=== PATIENT | female | born 1995 | race Caucasian/White ===

== ENCOUNTER 2016-07-09 21:04 | Emergency (ER) | payer MEDICAID ==
[~2016-07-09] VITALS: Ht 154.9 cm; Wt 57.5 kg
[2016-07-09 22:49] LABS: PATH.CAST-FLAG NOT PRESENT; SPERM-FLAG NOT PRESENT; SRC-FLAG NOT PRESENT; XTAL-FLAG NOT PRESENT; YLC-FLAG NOT PRESENT
[2016-07-09 22:51] LABS: HCG UR OBC PASS
[2016-07-09] MEDS ORDERED: KETOROLAC 30 MG/1 ML ONE (22:51)
[2016-07-09] MEDS ORDERED: ONDANSETRON 2MG/ML, 2ML ONE (22:52)
[2016-07-09] MEDS ORDERED: SODIUM CHLORIDE 0.9% 1,000ML IVBOLUS ONE (23:00)
[2016-07-09] MEDS ORDERED: KETOROLAC 30 MG/1 ML IVPush ONE (23:00)
[2016-07-09] MEDS ORDERED: ONDANSETRON 2MG/ML, 2ML IVPush ONE (23:00)
[2016-07-09 23:21] LABS: ASPARTATE AMINO TRANSFERASE 16 U/L (15-37); BLOOD UREA NITROGEN 5 mg/dL (7-18)
[2016-07-09] MEDS ORDERED: CEFTRIAXONE PMX 1GM/50ML 50 ML ONE (23:53)
[2016-07-10] MEDS ORDERED: CEFTRIAXONE PMX 1GM/50ML 50 ML IV ONE
[2016-07-10 00:06] VITALS: BP 108/62
== END 2016-07-10 00:09 | disposition home or self-care (01) ==
LOC: ED 22:33
DX: N10 Acute pyelonephritis (principal); N30.01 Acute cystitis with hematuria; R10.9 Unspecified abdominal pain
CPT/HCPCS: 36415; 74176; 80053; 81001; 81025; 83690; 85025; 87086; 96361; 96374; 96375; 99285; J0696; J1885; J2405; J7030; 87077

== ENCOUNTER 2016-07-15 17:52 | Emergency (ER) | payer MEDICAID ==
[~2016-07-15] VITALS: Ht 154.9 cm; Wt 59.2 kg
[2016-07-15] MEDS ORDERED: ONDANSETRON 2MG/ML, 2ML ONE (18:17)
[2016-07-15] MEDS ORDERED: KETOROLAC 30 MG/1 ML ONE (18:17)
[2016-07-15] MEDS ORDERED: SODIUM CHLORIDE 0.9% 1,000ML IVBOLUS ONE (18:30)
[2016-07-15] MEDS ORDERED: KETOROLAC 30 MG/1 ML IVPush ONE (18:30)
[2016-07-15] MEDS ORDERED: ONDANSETRON 2MG/ML, 2ML IVPush ONE (18:30)
[2016-07-15] MEDS ORDERED: SODIUM CHLORIDE FLUSH 10ML SYR IVF ONE (18:30)
[2016-07-15 18:43] LABS: BLOOD UREA NITROGEN 9 mg/dL (7-18)
[2016-07-15 18:49] LABS: ASPARTATE AMINO TRANSFERASE 12 U/L (15-37)
[2016-07-15 19:16] LABS: HCG UR OBC PASS
[2016-07-15] MEDS ORDERED: AZITHROMYCIN 500 MG TABLET PO ONE (19:30)
[2016-07-15] MEDS ORDERED: CEFTRIAXONE 250 MG ONE (19:32)
[2016-07-15] MEDS ORDERED: AZITHROMYCIN 250 MG TABLET ONE (19:32)
[2016-07-15] MEDS: CEFTRIAXONE 250 MG IM ONE ×2 (19:44→20:30)
[2016-07-15 20:32] VITALS: BP 103/55
== END 2016-07-15 20:47 | disposition home or self-care (01) ==
LOC: ED 20:38
DX: N76.0 Acute vaginitis (principal); R10.9 Unspecified abdominal pain; G43.909 Migraine, unspecified, not intractable, without status migrainosus
CPT/HCPCS: 36415; 76770; 76830; 80053; 81003; 81025; 84703; 85025; 87210; 87491; 87591; 87808; 96361; 96372; 96374; 96375; 99285; J0696; J1885; J2405; J7030

== ENCOUNTER 2018-05-05 19:31 | Emergency (ER) | payer MEDICAID ==
[~2018-05-05] VITALS: Ht 154.9 cm; Wt 49.3 kg
[2018-05-05 19:51] VITALS: BP 118/59
--- NOTE | 2018-05-05 21:41 | NUR ---
called back to room, not in lobby
== END 2018-05-05 22:29 | disposition left against medical advice (07) ==
LOC: ED 22:23
DX: N89.8 Other specified noninflammatory disorders of vagina (principal); R10.32 Left lower quadrant pain
CPT/HCPCS: 87081; 87880; 99283

== ENCOUNTER 2018-05-19 22:41 | Emergency (ER) | payer MEDICAID ==
[~2018-05-19] VITALS: Ht 154.9 cm; Wt 50.0 kg
[2018-05-19 23:38] LABS: BASOPHILS # (AUTO) 0.06 x10^3/uL (0-0.1); BASOPHILS % (AUTO) 1 % (0-1); EOSINOPHILS # (AUTO) 0.09 x10^3/uL (0-0.4); EOSINOPHILS % (AUTO) 1 % (1-7); LYMPHOCYTES % (AUTO) 43 % (22-44); MD NO; MEAN CORPUSCULAR HEMOGLOBIN 31.4 pg (27.0-34.8); MEAN CORPUSCULAR HGB CONC 34.4 g/dL (32.4-35.8); MEAN CORPUSCULAR VOLUME 91.3 fL (80-100); MEAN PLATELET VOLUME 7.3 fL (7.4-10.4); MONOCYTES % (AUTO) 5 % (2-9); NEUTROPHILS # (AUTO) 5.64 x10^3/uL (1.8-6.8); NEUTROPHILS % (AUTO) 51 % (42-75); PLATELET COUNT 464 x10^3/uL (130-400); RED BLOOD COUNT 4.57 x10^6/uL (3.82-5.3)
--- NOTE | 2018-05-19 23:40 | NUR ---
URINE SENT TO LAB. PT IN US AT THIS TIME. LABS DRAWN.
[2018-05-19 23:47] LABS: ALANINE AMINOTRANSFERASE 29 U/L (12-78); ANION GAP 7 mmol/L (5-15); CALCIUM 8.9 mg/dL (8.5-10.1); CHLORIDE 109 mmol/L (98-107); CREATININE 0.62 mg/dL (0.55-1.02)
[2018-05-19 23:51] LABS: MICROSCOPIC INDICATED
[2018-05-19 23:52] LABS: ALKALINE PHOSPHATASE 68 U/L (45-117); BILIRUBIN,TOTAL 0.4 mg/dL (0.2-1.0); TOTAL PROTEIN 7.6 g/dL (6.4-8.2)
[2018-05-20 00:19] LABS: CULTURE INDICATED? NO
--- NOTE | 2018-05-20 00:26 | NUR ---
ALL RESULTS BACK. PT UP FOR RECHECK. PT RESTING IN BED, NO STATED NEEDS/COMPLAINTS AT THIS TIME.
[2018-05-20] MEDS ORDERED: metroNIDAZOLE 500 MG TABLET PO STA (00:40)
[2018-05-20] MEDS ORDERED: metroNIDAZOLE 500 MG TABLET ONE (01:14)
[2018-05-20 01:25] VITALS: BP 101/57
== END 2018-05-20 01:26 | disposition home or self-care (01) ==
LOC: ED 23:30
DX: N93.8 Other specified abnormal uterine and vaginal bleeding (principal); N76.0 Acute vaginitis; F17.200 Nicotine dependence, unspecified, uncomplicated; G43.909 Migraine, unspecified, not intractable, without status migrainosus
CPT/HCPCS: 36415; 76830; 80053; 81001; 84703; 85025; 87491; 87591; 99284

== ENCOUNTER 2018-06-20 20:12 | Emergency (ER) | payer MEDICAID ==
[~2018-06-20] VITALS: Ht 154.9 cm; Wt 49.7 kg
[2018-06-20 20:13] VITALS: BP 119/72
--- NOTE | 2018-06-20 20:31 | NUR ---
BENSON MERCADO AT BEDSIDE EVALUATING PT
[2018-06-20] MEDS ORDERED: metroNIDAZOLE 500 MG TABLET PO ONE (21:00)
[2018-06-20] MEDS ORDERED: metroNIDAZOLE 500 MG TABLET ONE (21:11)
--- NOTE | 2018-06-20 21:19 | NUR ---
PT MEDICATED PER EMAR. 5 RIGHTS ADDRESSED.
--- NOTE | 2018-06-20 22:04 | NUR ---
Patient/Caregiver given discharge instructions and they have confirmed that they understand the instructions. Patient ambulatory with steady gait.
== END 2018-06-20 22:06 | disposition home or self-care (01) ==
LOC: ED 20:38
DX: A60.04 Herpesviral vulvovaginitis (principal); B00.9 Herpesviral infection, unspecified; G43.909 Migraine, unspecified, not intractable, without status migrainosus
CPT/HCPCS: 36415; 86695; 86696; 87529; 99283

== ENCOUNTER 2018-06-27 03:50 | Emergency (ER) | payer OTHER, MEDICAID ==
[~2018-06-27] VITALS: Ht 154.9 cm; Wt 50.0 kg
--- NOTE | 2018-06-27 03:58 | NUR ---
bib [facility] for left sided head lac, pt was arrested by [facility] and pt stated 'i hit my head on window of car, i did it myself" , denies boken glass or blood thinners. monitors applied, siderails up x2, call light within reach, wcpd at bedside
[2018-06-27] MEDS ORDERED: DIPH,PERTUSS(ACELL),TET VAC/PF 0.5 ML IM-VACC ONE ×2 (04:00→04:04)
[2018-06-27] MEDS ORDERED: LIDOCAINE-MPF 1%, 5ML INFIL ONE (04:00)
[2018-06-27] MEDS ORDERED: [UNRECOGNIZED DRUG - OTHER] (04:01)
[2018-06-27] MEDS ORDERED: LIDOCAINE-MPF 1%, 5ML ONE (04:05)
--- NOTE | 2018-06-27 04:30 | NUR ---
medical collections specialist at bedside for suture set up and to clean left head lac
[2018-06-27 04:49] VITALS: BP 104/51
--- NOTE | 2018-06-27 04:49 | NUR ---
pa at bedside for sutures
[2018-06-27] MEDS ORDERED: BACITRACIN ZINC OINT 500U/GM, 0.9 GM ONE (05:07)
[2018-06-27] MEDS ORDERED: BACITRACIN ZINC OINT 500U/GM, 0.9 GM TP ONE (05:30)
== END 2018-06-27 05:13 | disposition home or self-care (01) ==
LOC: ED 05:07
DX: S01.81XA Laceration without foreign body of other part of head, initial encounter (principal); F10.129 Alcohol abuse with intoxication, unspecified; X58.XXXA Exposure to other specified factors, initial encounter; Y93.89 Activity, other specified; Y92.810 Car as the place of occurrence of the external cause; Y99.8 Other external cause status
CPT/HCPCS: 12051; 70450; 90471; 90715

== ENCOUNTER 2018-07-26 06:21 | Emergency (ER) | payer OTHER, MEDICAID ==
[~2018-07-26] VITALS: Ht 154.9 cm; Wt 50.0 kg
[~2018-07-26 06:21] MED LIST: [UNRECOGNIZED DRUG - OTHER]
--- NOTE | 2018-07-26 06:33 | NUR ---
BIB [facility] FROM [facility] AFTER SWALLOWING A RAZOR BLADE AND DEVELOPING ABDOMINAL PAIN. DENIES ANY COUGHING OF BLOOD.
[2018-07-26 06:58] LABS: BASOPHILS # (AUTO) 0.07 x10^3/uL (0-0.1); BASOPHILS % (AUTO) 1 % (0-1); EOSINOPHILS # (AUTO) 0.09 x10^3/uL (0-0.4); EOSINOPHILS % (AUTO) 1 % (1-7); LYMPHOCYTES # (AUTO) 1.84 x10^3/uL (1-3.4); LYMPHOCYTES % (AUTO) 24 % (22-44); MD NO; MEAN CORPUSCULAR HEMOGLOBIN 30.2 pg (27.0-34.8); MEAN CORPUSCULAR HGB CONC 32.6 g/dL (32.4-35.8); MEAN CORPUSCULAR VOLUME 92.7 fL (80-100); MEAN PLATELET VOLUME 6.9 fL (7.4-10.4); MONOCYTES # (AUTO) 0.58 x10^3/uL (0.2-0.8); MONOCYTES % (AUTO) 8 % (2-9); NEUTROPHILS # (AUTO) 4.96 x10^3/uL (1.8-6.8); NEUTROPHILS % (AUTO) 66 % (42-75); PLATELET COUNT 435 x10^3/uL (130-400); RED BLOOD COUNT 4.72 x10^6/uL (3.82-5.3); RED CELL DISTRIBUTION WIDTH 12.4 % (9.6-15.2)
--- NOTE | 2018-07-26 07:05 | NUR ---
Received bedside report from RN. MANDIE Robles. Pt resting on gurney with handcuffs on with guard at bedside. Pt presented to ED with handcuffs. CMS intact. Pt c/o epigastric pain. Pt connected to NIBP and continous pulse ox. Both bedrails up for safety measures. No needs expressed at this time. Pt aware of need of urine for UA.
[2018-07-26 07:12] LABS: ALBUMIN 3.5 g/dL (3.4-5.0); ANION GAP 5 mmol/L (5-15); CALCIUM 9.3 mg/dL (8.5-10.1); CHLORIDE 108 mmol/L (98-107); CREATININE 0.69 mg/dL (0.55-1.02); SALICYLATE LEVEL < 1.7 mg/dL (2.8-20.0)
[2018-07-26 07:18] LABS: ACETAMINOPHEN < 2 mcg/mL (10-30)
--- NOTE | 2018-07-26 09:31 | NUR ---
Patient and guard given discharge instructions and they have confirmed that they understand the instructions. Patient ambulatory with steady gait. Pt left with custody. Pt and guards left with all personal belongings.
[2018-07-26 09:33] VITALS: BP 110/71
== END 2018-07-26 09:36 | disposition home or self-care (01) ==
LOC: ED 06:38
DX: R45.851 Suicidal ideations (principal); F48.8 Other specified nonpsychotic mental disorders
CPT/HCPCS: 36415; 71046; 74021; 80048; 80307; 82040; 84703; 85025; 99284

== ENCOUNTER 2018-08-20 15:12 | Emergency (ER) | payer OTHER, MEDICAID ==
[~2018-08-20] VITALS: Ht 154.9 cm; Wt 50.0 kg
--- NOTE | 2018-08-20 15:20 | NUR ---
PT BIB [facility] FOR NOT EATING OR DRINKING FOR FIVE DAYS. PT HAS HX OF DPRESSION AND IS ON LEGAL HOLD FROM ALF. PT ACCOMPANIED BY CORRECTIONAL OFFICERS. 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
[2018-08-20 15:50] LABS: BASOPHILS # (AUTO) 0.04 x10^3/uL (0-0.1); BASOPHILS % (AUTO) 1 % (0-1); EOSINOPHILS # (AUTO) 0.02 x10^3/uL (0-0.4); EOSINOPHILS % (AUTO) 0 % (1-7); LYMPHOCYTES # (AUTO) 2.45 x10^3/uL (1-3.4); LYMPHOCYTES % (AUTO) 34 % (22-44); MD NO; MEAN CORPUSCULAR HEMOGLOBIN 31.1 pg (27.0-34.8); MEAN CORPUSCULAR HGB CONC 33.8 g/dL (32.4-35.8); MEAN PLATELET VOLUME 7.6 fL (7.4-10.4); MONOCYTES % (AUTO) 6 % (2-9); NEUTROPHILS % (AUTO) 60 % (42-75); PLATELET COUNT 346 x10^3/uL (130-400); RED BLOOD COUNT 5.05 x10^6/uL (3.82-5.3); RED CELL DISTRIBUTION WIDTH 12.3 % (9.6-15.2)
[2018-08-20 16:01] LABS: ALANINE AMINOTRANSFERASE 16 U/L (12-78); ALBUMIN 3.8 g/dL (3.4-5.0); ANION GAP 15 mmol/L (5-15); CALCIUM 9.2 mg/dL (8.5-10.1); CHLORIDE 107 mmol/L (98-107); CREATININE 0.58 mg/dL (0.55-1.02)
[2018-08-20 16:04] LABS: ALKALINE PHOSPHATASE 66 U/L (45-117); BILIRUBIN,TOTAL 1.3 mg/dL (0.2-1.0); TOTAL PROTEIN 7.7 g/dL (6.4-8.2)
--- NOTE | 2018-08-20 16:10 | NUR ---
PT TO RESTROOM TO ATTEMPT TO VOID BUT WOULD NOT PER FEMALE COOK RELIEF.
--- NOTE | 2018-08-20 17:15 | NUR ---
TASK RN: GRANITE WORKER AT BEDSIDE FOR EVAL. OFFICERS REMAIN AT BEDSIDE.
[2018-08-20] MEDS ORDERED: HALOPERIDOL 5 MG TABLET PO ONE (18:00)
[2018-08-20] MEDS ORDERED: LORazepam 1MG TABLET PO ONE (18:00)
[2018-08-20] MEDS ORDERED: DIPHENHYDRAMINE 50 MG CAPSULE PO ONE (18:00)
--- NOTE | 2018-08-20 18:02 | NUR ---
TASK RN: POC IS DC. IV DC'D. PT OFF MONITORING. AWAITING DC INSTRUCTIONS.
[2018-08-20 18:03] VITALS: BP 101/69
--- NOTE | 2018-08-20 18:15 | NUR ---
TASK RN: MEDICATIONS ORDERED BY [employer] BUSINESS DEVELOPMENT OFFICER. THIS RN WITH CONCERNS OF SPO2 MONTIORING POST MEDICATING. ATTEMPTED TO CONTACT [employer] BUSINESS DEVELOPMENT OFFICER BY PHONE WO SUCCESS.
--- NOTE | 2018-08-20 18:25 | NUR ---
TASK RN: PSYCH ON PRESENT ON UNIT WHO STATES THAT PO MEDICATIONS WERE REQUESTED BY [facility] PROVIDER WHO IS AWARE OF POTENTIAL NEED FOR MONITORING. PT NOW TEARFUL, SITTING UP IN [facility]. PWD. PROVIDED PO JUICE/CRACKERS/PEANUT BUTTER FOR LOW BG. BRIAN SPENCE AT BEDSIDE TO MEDICATE PT.
[2018-08-20] MEDS ORDERED: DIPHENHYDRAMINE 50 MG CAPSULE ONE (18:34)
[2018-08-20] MEDS ORDERED: HALOPERIDOL 5 MG TABLET ONE (18:35)
[2018-08-20] MEDS ORDERED: LORazepam 1MG TABLET ONE (18:35)
--- NOTE | 2018-08-20 18:45 | NUR ---
TASK RN: PER JORDY TORRES, PT REFUSING PO INTAKE AND MEDICATIONS. REPORT TO NORA/BRIAN MARIE FOR FURTHER CARE.
--- NOTE | 2018-08-20 19:14 | NUR ---
PATIENT REFUSING TO TAKE MEDICATIONS AND IS REFUSING TO SPEAK. THIS RN SPENT AT LEAST 10 MINUTES ENCOURAGING PATIENT TO TAKE THE MEDICATIONS RECOMMENDED, WELL SPEAKING TO CAREGIVEERS AND LAW ENFORCEMNENT TAKING CARE OF HER. NOTIFIED BENSON GUTIERREZ THAT PATIENT IS REFUSING MEDS AND TO SPEAK. PER BENSON GUTIERREZ, WE ARE NOT ABLE TO FORCE PATIENT TO TAKE MEDS AND SHE IS ABLE TO BE DISCHARGED BACK TO CARE HOME. PRIMARY RN AND MOSES BAHENA NOTIFIED.
--- NOTE | 2018-08-20 19:37 | NUR ---
Pt agrred to have blood sugar taken. BS = 56. Will continue to monitor.
== END 2018-08-20 19:46 | disposition home or self-care (01) ==
LOC: ED 15:28
DX: F23 Brief psychotic disorder (principal); Z02.89 Encounter for other administrative examinations; F31.9 Bipolar disorder, unspecified; G43.909 Migraine, unspecified, not intractable, without status migrainosus
CPT/HCPCS: 36415; 80053; 80307; 82962; 85025; 99284

== ENCOUNTER 2018-08-22 22:03 | Emergency (ER) | payer OTHER, MEDICAID ==
[~2018-08-22] VITALS: Ht 157.5 cm; Wt 42.0 kg
[2018-08-22 22:19] VITALS: BP 96/61
[2018-08-22 22:48] LABS: BASOPHILS # (AUTO) 0.06 x10^3/uL (0-0.1); BASOPHILS % (AUTO) 1 % (0-1); EOSINOPHILS # (AUTO) 0.04 x10^3/uL (0-0.4); EOSINOPHILS % (AUTO) 1 % (1-7); LYMPHOCYTES % (AUTO) 43 % (22-44); MD NO; MEAN CORPUSCULAR HGB CONC 33.7 g/dL (32.4-35.8); MEAN CORPUSCULAR VOLUME 92.1 fL (80-100); MONOCYTES # (AUTO) 0.41 x10^3/uL (0.2-0.8); MONOCYTES % (AUTO) 7 % (2-9); NEUTROPHILS # (AUTO) 2.96 x10^3/uL (1.8-6.8); NEUTROPHILS % (AUTO) 49 % (42-75); PLATELET COUNT 328 x10^3/uL (130-400); RED BLOOD COUNT 5.21 x10^6/uL (3.82-5.3); RED CELL DISTRIBUTION WIDTH 12.6 % (9.6-15.2)
[2018-08-22 22:59] LABS: ALANINE AMINOTRANSFERASE 15 U/L (12-78); ALBUMIN 4.2 g/dL (3.4-5.0); ANION GAP 14 mmol/L (5-15); CALCIUM 9.9 mg/dL (8.5-10.1); CHLORIDE 107 mmol/L (98-107); SALICYLATE LEVEL 1.8 mg/dL (2.8-20.0)
--- NOTE | 2018-08-22 23:02 | NUR ---
PT [facility] OFFICE FOR FTT. PT REPORTEDLY NOT EATING OR DRINKING X 7 DAYS. FSBS 53 UPON ARRIVAL TO [facility] ED. PT IS NON-VERBAL, VOLUNTARILY, PER LAW ENFORCEMENT. PT VSS AT THIS TIME. IV ACCESS ESTABLISHED AND BLOOD COLLECTED AND TUBED TO LAB. AWAITING NEW ORDERS AT THIS TIME.
[2018-08-22 23:04] LABS: ALKALINE PHOSPHATASE 68 U/L (45-117); BILIRUBIN,TOTAL 1.7 mg/dL (0.2-1.0); CREATININE 0.76 mg/dL (0.55-1.02); TOTAL PROTEIN 8.1 g/dL (6.4-8.2)
[2018-08-22 23:32] LABS: FREE T4 (FREE THYROXINE) 1.27 ng/dL (0.76-1.46)
--- NOTE | 2018-08-23 00:03 | NUR ---
PT D/C WITH D/C SUMMARY IN CARE OF OFFICERS. ALL QUESTIONS ANSWERED. PER DESKTOP PUBLISHING SPECIALIST OFFICERS, NO OTHER NEEDS PERTAINING TO THIS VISIT. PT AMBULATES IN HANDCUFFS IN CUSTODY TO AMBULANCE BAY FOR D/C TO RESIDENTIAL.
== END 2018-08-22 23:53 | disposition home or self-care (01) ==
LOC: ED 22:27
DX: E16.2 Hypoglycemia, unspecified (principal)
CPT/HCPCS: 80053; 80307; 82962; 84439; 84443; 84481; 84703; 85025; 93005; 99284